=== PATIENT | female | born 1995 | race Caucasian/White ===

== ENCOUNTER 2022-05-19 12:29 | Emergency (ER) | payer SELFPAY ==
[~2022-05-19] VITALS: Ht 180.3 cm; Wt 68.0 kg
--- NOTE | 2022-05-19 12:29 | NUR ---
Robi CULVER to chair Lema
[2022-05-19 12:48] VITALS: BP 117/74
--- NOTE | 2022-05-19 12:59 | NUR ---
27 Y.O. F [place] [employer] C/O R SHOULDER PAIN. 12/16 PAIN. ACCORDING TO PD THE INJURY IS OLD AND NOT FROM AN ALTERCATION WITH THEM. A&OX4, SKIN INTACT, STEADY GAIT, AND VITALS WNL. PT DENIES ANY CHEST PAIN AND SOB AT THIS TIME. [facility]
--- NOTE | 2022-05-19 13:25 | NUR ---
Pt taken to RAD by W/C.
[2022-05-19 14:40] VITALS: BP 117/74
--- NOTE | 2022-05-19 14:42 | NUR ---
PATIENT BIB [place] [employer]. PATIENT EXAMINED BY DR. MITTAL. PATIENT MEDICALLY CLEARED AND RELEASED IN CUSTODY IN STABLE CONDITION. ORIGINAL PRE-BOOK FORM GIVEN TO OFFICER.
== END 2022-05-19 14:42 ==
LOC: MED 12:29
DX: S42.121A Displaced fracture of acromial process, right shoulder, initial encounter for closed fracture (principal); X58.XXXA Exposure to other specified factors, initial encounter; Y93.89 Activity, other specified; Y92.89 Other specified places as the place of occurrence of the external cause; Y99.8 Other external cause status
CPT/HCPCS: 73030; 99283